=== PATIENT | female | born 1985 | race Caucasian/White ===

== ENCOUNTER 2017-11-01 04:37 | Emergency (ER) | payer OTHER ==
[~2017-11-01] VITALS: Ht 162.6 cm; Wt 95.3 kg
--- NOTE | 2017-11-01 04:49 | ED GENERAL ADULT ---
History of Present Illness General Chief Complaint: Fever Stated Complaint: SOB,FEVER Source: patient Exam Limitations: no limitations Vital Signs & Intake/Output Vital Signs & Intake/Output Vital Signs Date Time Temp Pulse Resp B/P B/P Pulse O2 O2 Flow FiO2 Mean Ox Delivery Rate 11/01 0504 98 Room Air 11/01 0502 102.2 11/01 0502 102.2 11/01 0444 102.7 111 20 140/88 100 Room Air Allergies Coded Allergies: amoxicillin (Intermediate, ITCHING 11/01/17) Reconcile Medications Benzonatate (Tessalon Perle) 100 MG CAPSULE 1 CAP PO TID PRN COUGH Ibuprofen 800 MG TABLET 1 TAB PO TID PRN FEVER, BODY ACHES Levofloxacin (Levaquin) 500 MG TABLET 1 TAB PO DAILY BRONCHITIS/INFECTION Triage Nurses Notes Reviewed? yes Onset: Gradual Duration: hour(s): Timing: recent history Injury Environment: home Severity: moderate HPI: 29 yo woman awoke with fever, cough for the past week. She notes, "Tonight, I just started shaking real bad." She notes no significant phlegm, "I just can't get it up." She notes mild nausea, without chest pain, shortnes of breath. Past History Medical History Any Pertinent Medical History? see below for history Surgical History Surgical History: none Family History Hx Contributory? No Review of Systems Review of Systems Constitutional: Reports: no symptoms. EENTM: Reports: no symptoms. Respiratory: Reports: no symptoms. Cardiovascular: Reports: no symptoms. GI: Reports: no symptoms. Genitourinary: Reports: no symptoms. Musculoskeletal: Reports: no symptoms. Skin: Reports: no symptoms. Neurological/Psychological: Reports: no symptoms. Hematologic/Endocrine: Reports: no symptoms. Immunologic/Allergic: Reports: no symptoms. All Other Systems: Reviewed and Negative Physical Exam Physical Exam General Appearance: well developed/nourished, no apparent distress Head: atraumatic, normal appearance Eyes: Bilateral: normal appearance. Ears, Nose, Throat: normal pharynx, normal ENT inspection Neck: normal inspection, supple, full range of motion Respiratory: normal breath sounds Cardiovascular: regular rate/rhythm Gastrointestinal: normal bowel sounds Back: normal inspection Extremities: normal capillary refill, normal range of motion Neurologic/Psych: awake Reflexes: 0: tricep (L). Core Measures ACS in differential dx? No CVA/TIA Diagnosis: No Sepsis Present: No Sepsis Focused Exam Completed? No Progress Differential Diagnoses I considered the following diagnoses in my evaluation of the patient: uri pyelo vs obronchitis vs other. Plan of Care: Orders Procedure Date/time Status LIPASE 11/01 448 Complete HUMAN BETA HCG SCREEN 11/01 448 Complete COMPREHENSIVE METABOLIC PANEL 11/01 448 Complete CBC WITHOUT DIFFERENTIAL 11/01 448 Complete AMYLASE 11/01 448 Complete RAPID VIRAL INFLUENZA A 11/02 447 Complete THROAT CULTURE W/QUICK STREP 11/02 447 Active Laboratory Tests 11/01/17 0507: Anion Gap 16, Estimated GFR > 60, BUN/Creatinine Ratio 28.0 H, Glucose 202 H, Calcium 9.1, Total Bilirubin 0.4, AST 40 H, ALT 35, Alkaline Phosphatase 119, Total Protein 7.3, Albumin 4.1, Globulin 3.2, Albumin/Globulin Ratio 1.3, Amylase 38, Lipase 41, Total Beta HCG NEGATIVE, CBC w Diff MAN DIFF ORDERED, RBC 4.66, MCV 80.4 L, MCH 26.2 L, MCHC 32.6 L, RDW 14.3, MPV 9.8, Gran % 91.0 H, Lymphocytes % 6.5 L, Monocytes % 1.5 L, Eosinophils % 0.9, Basophils % 0.1, Absolute Granulocytes 14.5 H, Segmented Neutrophils 85 H, Band Neutrophils 4, Absolute Lymphocytes 1.0 L, Lymphocytes 9 L, Monocytes 1 L, Absolute Monocytes 0.2, Absolute Eosinophils 0.1, Basophils 1, Absolute Basophils 0, Platelet Estimate ADEQUATE, Hypochromic-Microcytic 2+, Anisocytosis 1+, Stomatocytes FEW, Elliptocytes FEW Microbiology 11/01 454 NASOPHARYN: Influenza Virus A & B Rapid Smear - COMP Diagnostic Imaging: Viewed by Me: Radiology Read. Discussed w/RAD: Radiology Read. CXR Impression: no acute abnormality, no infiltrates, normal size heart, normal mediastinum Initial ED EKG: none Departure Departure Disposition: HOME OR SELF CARE Condition: Stable Clinical Impression Primary Impression: Bronchitis Referrals: Tawanda Call MD (PCP/Family) Departure Forms: Customer Survey General Discharge Information Prescriptions: Current Visit Scripts Ibuprofen 1 TAB PO TID PRN FEVER, BODY ACHES #30 TAB Benzonatate (Tessalon Perle) 1 CAP PO TID PRN COUGH #30 CAP Levofloxacin (Levaquin) 1 TAB PO DAILY #10 TAB Comments 11/01/17, 6:24am... given elevated wbc count, fever, duration of sx, will treat with abx... pt allergic to pcn... will rx with levoquin. close follow up advised. Critical Care Note Critical Care Note Critical Care Time: non-applicable
[2017-11-01 05:30] LABS: ABSOLUTE BASOPHIL COUNT 0 /CUMM (0.0-0.2); ABSOLUTE EOSINOPHIL COUNT 0.1 /CUMM (0.0-0.7); ABSOLUTE GRANULOCYTE CT 14.5 /CUMM (1.4-6.5); ABSOLUTE MONOCYTE COUNT 0.2 /CUMM (0.10-0.60); BASOPHIL % 0.1 % (0.0-2.0); EOSINOPHIL % 0.9 % (0-5); HEMATOCRIT 37.4 % (37-47); MEAN CORPUSCULAR HGB 26.2 PG (27.0-31.0); MEAN CORPUSCULAR HGB CONC 32.6 G/DL (33.0-37.0); MEAN CORPUSCULAR VOLUME 80.4 FL (81.0-99.0); MEAN PLATELET VOLUME 9.8 FL (7.4-10.4); PLATELET COUNT 268 /CUMM (130-400); RBC DISTRIBUTION WIDTH 14.3 % (11.5-14.5); RED BLOOD CELL CT 4.66 /CUMM (4.20-5.40)
--- NOTE | 2017-11-01 06:01 | RADIOLOGY REPORT ---
EXAMINATION: XR PORTABLE CHEST CLINICAL INFORMATION: Cough, fever. COMPARISON: None TECHNIQUE: Portable frontal view of the chest was obtained. 5:35 AM FINDINGS: No significant abnormality is noted involving the heart, lungs, mediastinum, bony thorax or soft tissues. IMPRESSION: Unremarkable examination.
[2017-11-01] MEDS ORDERED: TESSALON PERLE100 M1 PO (06:20)
[2017-11-01] MEDS ORDERED: LEVAQUIN500 M1 PO (06:20)
[2017-11-01] MEDS ORDERED: IBUPROFEN800 M1 PO (06:20)
[2017-11-01 06:26] VITALS: BP 138/84
== END 2017-11-01 06:27 ==
LOC: ERH 04:37
PROVIDERS: Pediatrics
DX: J40 Bronchitis, not specified as acute or chronic (principal)
CPT/HCPCS: 71045; 87804; 87804-59; J3101